=== PATIENT | female | born 1965 | race Caucasian/White ===

== ENCOUNTER 2016-11-08 08:13 | Day surgery (SDC) | payer BC ==
[~2016-11-08] VITALS: Ht 167.6 cm; Wt 73.5 kg
[2016-11-08] MEDS ORDERED: ESTRACE 1MG1 MG/TAB PO (08:31)
[2016-11-08] MEDS ORDERED: CELEXA 20MG20 MG/TAB PO (08:31)
[2016-11-08 08:33] VITALS: BP 138/74; PULSE 65; TEMP 97.4
[2016-11-08 09:45] VITALS: BP 155/82; PULSE 59; TEMP 97.4
[2016-11-08 10:00] VITALS: BP 132/77; PULSE 64
[2016-11-08 10:15] VITALS: BP 125/84; PULSE 59
== END 2016-11-08 10:30 | disposition home or self-care (01) ==
LOC: SDCO 08:13
DX: Z12.11 Encounter for screening for malignant neoplasm of colon (principal); K57.30 Diverticulosis of large intestine without perforation or abscess without bleeding; K59.00 Constipation, unspecified; R10.2 Pelvic and perineal pain
CPT/HCPCS: J2250; J3010; J7030

== ENCOUNTER → 2020-08-02 | Outpatient (CLI) | payer BC ==
[~2020-08-02] MED LIST: CELEXA 20MG20 MG/TAB PO; ESTRACE 1MG1 MG/TAB PO
== END ==
LOC: MC.RAD 13:00
DX: Z12.31 Encounter for screening mammogram for malignant neoplasm of breast (principal); N63.11 Unspecified lump in the right breast, upper outer quadrant

== ENCOUNTER → 2020-08-15 | Outpatient (CLI) | payer BC | LOC: MC.RAD 14:56 | DX: N63.10 Unspecified lump in the right breast, unspecified quadrant (principal); N63.20 Unspecified lump in the left breast, unspecified quadrant ==

== ENCOUNTER → 2020-10-30 | Outpatient (CLI) | payer BC | LOC: MC.RAD | DX: N63.11 Unspecified lump in the right breast, upper outer quadrant (principal) ==

== ENCOUNTER → 2021-03-22 | Outpatient (CLI) | payer BC | LOC: MC.RAD 09:11 | DX: N63.20 Unspecified lump in the left breast, unspecified quadrant (principal) ==

== ENCOUNTER → 2021-09-27 | Outpatient (CLI) | payer BC | LOC: MC.RAD 14:48 | DX: N63.10 Unspecified lump in the right breast, unspecified quadrant (principal); N63.20 Unspecified lump in the left breast, unspecified quadrant ==

== ENCOUNTER → 2022-10-25 | Outpatient (CLI) | payer BC | LOC: MC.RAD 07:51 | DX: Z12.31 Encounter for screening mammogram for malignant neoplasm of breast (principal) ==

== ENCOUNTER → 2024-03-23 | Outpatient (CLI) | payer BC | LOC: MC.RAD 09:14 | DX: Z12.31 Encounter for screening mammogram for malignant neoplasm of breast (principal) ==